=== PATIENT | female | born 1995 ===

== ENCOUNTER 2022-07-09 01:00 | Emergency (ER) | payer SELFPAY ==
[2022-07-09 01:04] VITALS: BP 126/82; PULSE 65; RESP 16; TEMP 36.7; O2SAT 98; BMI 37.8
--- NOTE | 2022-07-09 01:12 | USR_ITS ---
PROCEDURE INFORMATION: Exam: US Abdomen, Limited; Right Upper Quadrant Exam date and time: 07/09/2022 1:22 AM Age: 26 years old Clinical indication: Abdominal pain; Acute; Additional info: Ruq pain TECHNIQUE: Imaging protocol: Real time ultrasound of the abdomen with image documentation. Limited exam focused on the right upper quadrant. COMPARISON: No relevant prior studies available. FINDINGS: Liver: The liver is normal in size, measuring 17 a in cm in length. It shows a somewhat heterogeneous, hyperechoic echotexture as seen in hepatic steatosis.. Gallbladder: There are no shadowing gallstones. There is sludge in the gallbladder lumen. The gallbladder wall thickness is three mm. There is no pericholecystic fluid. The aws software development engineer reports a negative Stevens's sign. Biliary ducts: The common bile duct measures 2 mm in diameter, normal. Pancreas: The pancreas appears normal in size and echotexture. Right kidney: The right kidney measures 11.8 x 4.3 x 6.6 cm, normal. Cortical thickness is 1.1 cm. Spleen: There is normal cortical echogenicity. US/US gall bladder [id number] IMPRESSION: 1. Sludge in the gallbladder. No evidence of cholelithiasis or acute cholecystitis. 2. Hepatic steatosis with the liver near the upper limits of normal in size. 3. Normal common bile duct.
--- NOTE | 2022-07-09 01:13 | ED_ITS ---
HPI - Abdominal Pain General: Chief Complaint: Abdominal Pain Stated Complaint: ABD Pain\Back Pain Time Seen by Provider: 07/09/22 01:03 Source: patient Mode of arrival: ambulatory Limitations: no limitations History of Present Illness: 26-year-old females had epigastric pain over the last 10 hours. Patient states the pain is sharp in nature rates it a 6 out of 10 and radiated to her chest earlier denies any vomiting denies any diarrhea. Denies any worsening improving factors. Associated Symptoms: Denies chills, dysuria and fever(s) Review of Systems Const: Denies: fever(s), chills, body aches or change in appetite Eyes: Denies: blurry vision or eye discomfort ENMT: Denies: throat pain or dental pain Card: Denies: chest pain Resp: Denies: dyspnea GI: Reports: abdominal pain : Denies: dysuria Musc: Denies: neck pain or back pain Skin/Breast: Denies: rash Neuro: Denies: headache(s) Psych: Denies: depression Harry/Lymph: Denies: easy bruising All/Imm: Denies: urticaria PFSH ED PFSH: Medical History (Updated 07/09/22 @ 02:32 by Gee Queen MD) No pertinent past medical history Social History (Updated 07/09/22 @ 01:13 by Gee Queen MD) Substance/Drug Use: never Physical Exam Const: COMMON NORMALS: no acute distress, patient oriented x3 and healthy appearing HENMT: COMMON NORMALS: normocephalic and atraumatic HEAD & SCALP: normocephalic and atraumatic Eye: COMMON NORMALS: Equal, round and reactive pupils present and EOMs intact bilaterally PUPIL: Yes Equal, round and reactive pupils present Neck/C-Spine: COMMON NORMALS: full ROM and supple Chest: COMMONS NORMALS: normal inspection of the chest and normal palpation of entire chest wall Resp: COMMON NORMALS: normal respiratory effort, No retractions, No use of accessory muscles and clear to auscultation bilaterally AUSCULTATION: clear to auscultation bilaterally Cardio: COMMON NORMALS: regular rate, regular rhythm and No murmurs present (Cardio) RATE: regular rate RHYTHM: regular rhythm GI: COMMON NORMALS: Normal to inspection, nondistended, normoactive bowel sounds present, Soft to palpation, non-tender and no masses PALPATION: Yes Soft to palpation Extremity: COMMON NORMALS: normal to inspection and full ROM Neuro: COMMON NORMALS: patient oriented x3, moves all extremities and no focal motor deficits Psych: COMMON NORMALS: mental status grossly normal, Normal thought process present and cooperative THOUGHT PROCESS: Normal thought process present Skin: COMMON NORMALS: no rashes or lesions noted and no wounds GENERAL SKIN EXAM: no rashes or lesions noted Course Vital Signs: Vital signs: Vital Signs Temperature 98.0 F 07/09/22 01:04 Pulse Rate 65 07/09/22 01:44 Respiratory Rate 16 07/09/22 01:44 Blood Pressure 122/83 07/09/22 01:44 Pulse Oximetry 98 07/09/22 01:44 Oxygen Delivery Me thod 07/09/22 01:44 MDM - Abdominal Pain Medical Decision Making Patient presents abdominal pain is likely gastritis her GI cocktail completely relieved her pain her blood work here is normal exam is benign we will place her on Protonix care follow-up with surgery she is return if worsening. Lab Data 07/09/22 01:18 07/09/22 01:18 Labs/Radiology: Laboratory Results WBC 10.7 10^3/uL (4.0-10.0) H 07/09/22 01:18 RBC 4.50 10^6/uL (4.1-5.3) 07/09/22 01:18 Hgb 12.5 g/dL (11.5-15.3) 07/09/22 01:18 Hct 39.3 % (37.0-47.0) 07/09/22 01:18 MCV 87.3 fl (81-99) 07/09/22 01:18 MCH 27.8 pg (28.0-34.0) L 07/09/22 01:18 MCHC 31.8 g/dL (30.0-36.0) 07/09/22 01:18 RDW 12.8 % (12.1-15.1) 07/09/22 01:18 Plt Count 337 10^3/cmm (130-400) 07/09/22 01:18 MPV 9.6 fL (7.4-10.4) 07/09/22 01:18 Neut % (Auto) 78.9 % 07/09/22 01:18 Lymph % (Auto) 16.4 % 07/09/22 01:18 Harnett % (Auto) 4.0 % 07/09/22 01:18 Eos % (Auto) 0.2 % 07/09/22 01:18 Baso % (Auto) 0.3 % 07/09/22 01:18 Neut # (Auto) 8.44 10^3/uL (1.8-7.7) H 07/09/22 01:18 Lymph # (Auto) 1.8 10^3/uL (0.8-4.8) 07/09/22 01:18 Harnett # (Auto) 0.4 10^3/uL (0.2-0.9) 07/09/22 01:18 Eos # (Auto) 0.0 10^3/uL (0.0-0.8) 07/09/22 01:18 Baso # (Auto) 0.0 10^3/uL (0.0-0.1) 07/09/22 01:18 Nucleated RBC % (auto) 0 % 07/09/22 01:18 Nucleated RBCs # 0.0 /100WBC 07/09/22 01:18 Sodium 136 mmol/L (136-145) 07/09/22 01:18 Potassium 4.3 mmol/L (3.5-5.1) 07/09/22 01:18 Chloride 99 mmol/L (98-107) 07/09/22 01:18 Carbon Dioxide 26 mmol/L (22-29) 07/09/22 01:18 Anion Gap 15.3 (5-19) 07/09/22 01:18 BUN 12 mg/dL (6-20) 07/09/22 01:18 Creatinine 0.5 mg/dL (0.5-0.9) 07/09/22 01:18 Calcium 9.7 mg/dL (8.5-10.5) 07/09/22 01:18 Total Bilirubin 0.3 mg/dL (0.15-1.2) 07/09/22 01:18 AST 20 U/L (0-32) 07/09/22 01:18 Total Protein 7.9 g/dL (6.6-8.7) 07/09/22 01:18 Albumin 4.2 g/dL (3.5-5.2) 07/09/22 01:18 Globulin 3.7 g/dL (1.3-4.6) 07/09/22 01:18 Lipase 26 U/L (13-60) 07/09/22 01:18 HCG, Qual Negative (Negative) 07/09/22 01:18 Discharge Plan Discharge Patient Disposition: Home Clinical Impression: Abdominal pain Prescriptions: New pantoprazole [Protonix] 40 mg tablet,delayed release (DR/EC) 40 mg PO DAILY Qty: 60 0RF Discharge Orders: Discharge ED (Routine); Ordered 07/09/22 Ordered By: Gee Queen Referrals: Navneet Taveras DO [Physician] - 1-3 days Discharge Diet: Advance as tolerated Discharge Activity: Resume usual activity Patient Instructions: Gastritis (ED), Abdominal Pain (ED) Coding Level of Care Code ED Quality Assurance Supervisor Trim for Clara Stephens
--- NOTE | 2022-07-09 01:15 | XRR_ITS ---
PROCEDURE INFORMATION: Exam: XR Chest Exam date and time: 07/09/2022 1:39 AM Age: 26 years old Clinical indication: Pain; Chest pressure; Additional info: Cp TECHNIQUE: Imaging protocol: Radiologic exam of the chest. Views: 1 view. COMPARISON: No relevant prior studies available. FINDINGS: Lungs: There is no evidence of focal pulmonary consolidation. Pleural spaces: No pleural effusion or pneumothorax. Heart/Mediastinum: The heart and mediastinum are normal in size. Bones/joints: Unremarkable. XR/XR chest 1V portable [id number] IMPRESSION: No acute findings.
[2022-07-09 01:30] LABS: Basophils % 0.3 %; Eosinophils % 0.2 %; Hematocrit 39.3 % (37.0-47.0); Hemoglobin 12.5 g/dL (11.5-15.3); Lymphocytes # 1.8 10^3/uL (0.8-4.8); Lymphocytes % 16.4 %; Mean Corpuscular HGB Conc 31.8 g/dL (30.0-36.0); Mean Corpuscular Hemoglobin 27.8 pg (28.0-34.0); Mean Corpuscular Volume 87.3 fl (81-99); Mean Platelet Volume 9.6 fL (7.4-10.4); Monocytes # 0.4 10^3/uL (0.2-0.9); Neutrophils # 8.44 10^3/uL (1.8-7.7); Neutrophils % 78.9 %; Nucleated Red Blood Cells % 0 %; Platelet Count 337 10^3/cmm (130-400); Red Cell Distribution Width 12.8 % (12.1-15.1); White Blood Count 10.7 10^3/uL (4.0-10.0)
[2022-07-09] MEDS: lidocaine 2% viscous 15 ML, aluminum-mag hydrox-simethicon 30 ML, sucralfate oral liq 1 GM PO (01:32)
[2022-07-09] MEDS: sodium chloride 0.9% 1,000 ML 999 ML IV (01:35)
[2022-07-09 01:44] VITALS: BP 122/83; PULSE 65; RESP 16; O2SAT 98
[2022-07-09 02:15] LABS: Alanine Aminotransferase 34 U/L (0-33); Albumin Level 4.2 g/dL (3.5-5.2); Alkaline Phosphatase 120 U/L (35-105); Anion Gap 15.3 (5-19); Aspartate Amino Transferase 20 U/L (0-32); Blood Urea Nitrogen 12 mg/dL (6-20); Calcium 9.7 mg/dL (8.5-10.5); Carbon Dioxide 26 mmol/L (22-29); Chloride 99 mmol/L (98-107); Globulin 3.7 g/dL (1.3-4.6); Glomerular Filtration Rate 146.9 mL/min (90-130); Glucose 138 mg/dL (65-115); Lipase 26 U/L (13-60); Osmolality Calculated 284 mOsm/kg (285-295); Potassium 4.3 mmol/L (3.5-5.1); Sodium 136 mmol/L (136-145); Total Bilirubin 0.3 mg/dL (0.15-1.2); Total Protein 7.9 g/dL (6.6-8.7)
[2022-07-09 02:21] LABS: HCG, Serum Qual Negative (Negative)
[2022-07-09 02:51] VITALS: BP 122/67; PULSE 74; RESP 16; O2SAT 98
[2022-07-09 02:52] VITALS: BP 122/67; PULSE 74; RESP 16; O2SAT 98
--- NOTE | 2022-07-09 10:57 | DCPLANNER ---
Addendum entered by Cari Fragoso 08/01/22 08:17: Patient had a follow up appointment scheduled with general surgery - patient did attend appointment Addendum entered by Cari Fragoso 07/11/22 15:17: Patient has a follow up appointment scheduled for Sunday, July 31, 2022 at 11:[address] Taveras at general surgery. Clinic will call patient with appointment information. Original Note: administrative manager had message to schedule a follow up appointment for patient with general surgery. administrative manager sent patients information to the front office staff at general surgery. Patients information will be printed and reviewed. Clinic will call patient with appointment information.
== END 2022-07-09 02:50 | disposition home or self-care (01) ==
PROVIDERS: Emergency Provider Emergency Medicine
DX: R10.13 Epigastric pain (principal)
CPT/HCPCS: 71045; 76705; 80053; 83690; 84703; 85025; 96360; 99284; J7030

== ENCOUNTER 2022-11-05 07:39 | Day surgery (SDC) | payer SELFPAY ==
[2022-11-02 11:49] VITALS: BMI 37.2
[2022-11-05] VITALS (11 sets, daily range): BP systolic 107–121; BP diastolic 68–79; PULSE 51–66; RESP 12–16; TEMP 36.2; O2SAT 97–100
[2022-11-05] MEDS: scopolamine 1.5 Patch 1 PATCH TRANSDERMA (08:23)
[2022-11-05] MEDS: diphenhydrAMINE 50 mg/mL SDV 1mL 12.5 MG IVP (08:24)
[2022-11-05] MEDS: ondansetron 2 mg/ML SDV 2 mL 4 MG IVP (08:27)
--- NOTE | 2022-11-05 08:28 | P.HP_ITS ---
Providers/Chief Complaint Chief Complaint: R10.9 History of Present Illness Marzena Rucker is a 27 year old female here for laparoscopic cholecystectomy Medications/Allergies Home Medications Medication Instructions Recorded Confirmed Last Taken Type No Known Home Medications 11/02/22 11/02/22 Unknown History Allergies Allergy/AdvReac Type Severity Reaction Status Date / Time No Known Allergies Allergy Verified 11/02/22 11:44 PFSH Acute PFSH: Medical History Family history of breast cyst No pertinent past medical history Surgical History History of Social History Substance/Drug Use: never Vitals/I&O/Wt Last Vital Signs O2 Del Method Room Air 11/05/22 07:59 A&P Assessment and plan (1) Symptomatic cholelithiasis: Plan Laparoscopic cholecystectomy Attestations Medical Necessity Statement*: Home Coding Level of Care Code Acute Code for [facility] Raginid Diagnoses Symptomatic cholelithiasis K80.20
--- NOTE | 2022-11-05 08:30 | ANES.PREANE2 ---
Pre-Anesthetic Assessment Height/Weight: Height 1.63 m Weight 98.43 kg O2 Del Method Room Air 11/05/22 07:59 Operation Date: 11/05/22 10:10 Proposed Procedures p 43942 lap yusef R10.9(Not Applicable) - Navneet Taveras DO Familial anesthetic complications: none Was Beta Fidel taken within 24 hours: N/A Was Clonidine taken within 24 hours: N/A Last intake: Intake Last Liquid Date 11/04/22 Last Liquid Time 20:00 Last Solid Date 11/04/22 Last Solid Time 20:00 Social No tobacco Exam alert, oriented x 3, clear to auscultation bilaterally and regular rate & rhythm Airway Submandibular: within normal limits Cervical ROM: within normal limits Mallampati: Class II Dentition: full Metabolic Morbid Obesity Anesthetic Plan ASA status: 2 Anesthesia: General Medications/Allergies Home Medications Medication Instructions Recorded Confirmed Last Taken Type No Known Home Medications 11/02/22 11/02/22 Unknown History Allergies Allergy/AdvReac Type Severity Reaction Status Date / Time No Known Allergies Allergy Verified 11/02/22 11:44 [facility] Anesthesia Medical History Family history of breast cyst No pertinent past medical history Surgical History History of Social History Substance/Drug Use: never Data Anesthesia Cardiac Studies: No Data to Display
[2022-11-05] MEDS: sodium chloride 0.9% 1,000 ML 30 ML IV (08:40)
[2022-11-05 08:44] LABS: OR HCG Qualitative Urine Negative (Negative)
[2022-11-05] MEDS: ceFAZolin 2,000 MG in sodium chloride 0.9% (plus) 50 ML 100 MG IV (09:00)
[2022-11-05] MEDS: lidocaine-epi 2% 20 mL INJ INJECTION (09:11)
--- NOTE | 2022-11-05 09:29 | P.OP_ITS ---
Operative Report Date of procedure: November 05, 2022 Pre-op diagnosis: Symptomatic cholelithiasis Post-op diagnosis: same Procedure done: Laparoscopic cholecystectomy Specimens removed/disposition: Gallbladder Surgeon: Dr. Navneet Taveras DO Anesthesia: General Estimated blood loss (mL): 5 Complications: None apparent Brief History: This is a very pleasant 27-year-old female with symptomatic cholelithiasis. Laparoscopic cholecystectomy is indicated. The risk and benefits were explained and documented. Procedure: Patient was wheeled into the operative room and placed on the OR table in a supine position. Abdomen was inspected prepped and draped in usual sterile fashion. Time-out was performed and all present were in agreement. A 15 blade scalp was used to make a stab incision in the left upper quadrant and intra- abdominal insufflation was achieved using a Veress needle. After localizing the tissue incisions were made and a 5 millimeter trocar was placed into the umbilicus as well as 2 in the right upper quadrant. A 12 millimeter trocar was placed in the epigastrium. Gallbladder was grasped and elevated. The triangle of Calot was carefully dissected using blunt dissection and electrocautery until the triangle of Calot clearly identified. The cystic duct was clipped proximally and double clipped distally. The duct was then ligated proximally. The cystic artery was doubly clipped and ligated. The gallbladder was then removed from the liver bed using electrocautery. The gallbladder was removed from the abdomen using an Endo-Catch bag through the epigastric incision. The liver bed was inspected and no bleeding was seen. The abdomen was irrigated and suctioned. All ports removed. Skin was washed and dried. Incisions were closed with 3-0 and 4-O Vicryl in a subcuticular interrupted fashion. Skin glue was applied. Patient tolerated the procedure well.
[2022-11-05] MEDS: fentaNYL 50 mcg/mL INJ 2mL IVP (09:55)
[2022-11-05] MEDS: HYDROcodone-acetaminophen 5-325 mg Tablet 1 TAB PO (10:34)
--- NOTE | 2022-11-05 14:34 | ANE.PACU2 ---
Inpatient post-anesthesia follow up: Airway intact: Yes Vital signs: Temperature 97.2 F Pulse Rate 58 Respiratory Rate 16 Blood Pressure 118/76 Pulse Oximetry 100 Oxygen Delivery Me thod Room Air Oxygen Flow Rate 6 Fraction of Inspir ed Oxygen Hydration adequate: Yes Nausea and vomiting: No Pain level: 3 Mental status: Baseline
== END 2022-11-05 10:53 | disposition home or self-care (01) ==
PROVIDERS: Anesthesiology; Visit Provider Surgery
PROC: 0FT44ZZ Resection of Gallbladder, Percutaneous Endoscopic Approach (ICD-10-PCS; CPT 47562; principal; 2022-11-05 10:10)
DX: K80.10 Calculus of gallbladder with chronic cholecystitis without obstruction (principal); E66.01 Morbid (severe) obesity due to excess calories; Z68.37 Body mass index [BMI] 37.0-37.9, adult
CPT/HCPCS: 47562; 81025; 84703; 88304; J0690; J1100; J1170; J1200; J1885; J2250; J2405; J2704; J2710; J3010; J3490; J7030

== ENCOUNTER 2022-12-17 12:35 | Outpatient (CLI) | payer SELFPAY ==
--- NOTE | 2022-12-17 13:27 | US_ITS ---
WS: [id number] ULTRASOUND BREAST RIGHT TECHNIQUE: Ultrasound right breast focused area of concern. CLINICAL INFORMATION: MASTODYNIA/PAIN AND NODULE COMPARISON: Ultrasound 2013 FINDINGS: Ultrasound RIGHT breast upper outer quadrant area of pain. Normal underlying parenchymal tissue. No s uspicious cystic or solid lesions. No suspicious lesions to target for biopsy. Recommend annual scree lana mammography age 40. US/US breast RT limited* [id number] IMPRESSION: BI-RADS 2 benign Recommend annual screening mammography age 40.
== END 2022-12-17 12:36 | disposition home or self-care (01) ==
PROVIDERS: Visit Provider Obstetrics & Gynecology
DX: N64.4 Mastodynia (principal)
CPT/HCPCS: 76642

== ENCOUNTER → 2024-09-13 15:35 | Outpatient (BNVA) | payer SELFPAY | PROVIDERS: Visit Provider Emergency Medicine | DX: M79.671 Pain in right foot (principal) | CPT/HCPCS: 73630 ==

== ENCOUNTER → 2024-10-26 11:29 | Outpatient (BNVA) | payer SELFPAY | PROVIDERS: Visit Provider Nurse Practitioner Women's Health | DX: R30.0 Dysuria (principal); R10.2 Pelvic and perineal pain | CPT/HCPCS: 81000 ==

== ENCOUNTER → 2024-11-03 09:30 | Outpatient (BNVA) | payer SELFPAY | DX: R05.3 Chronic cough (principal); M25.561 Pain in right knee | CPT/HCPCS: 71046; 73562 ==

== ENCOUNTER → 2024-11-17 10:10 | Outpatient (BNVA) | payer SELFPAY | PROVIDERS: Visit Provider Nurse Practitioner Women's Health | DX: Z01.419 Encounter for gynecological examination (general) (routine) without abnormal findings (principal) | CPT/HCPCS: 81000; 87086; 87624 ==

== ENCOUNTER 2024-12-09 07:14 | Outpatient (CLI) | payer SELFPAY ==
--- NOTE | 2024-12-09 07:40 | XR_ITS ---
WS: [id number] RIGHT SHOULDER: 3 VIEW(S) TECHNIQUE: Internal and external rotation with Y view. HISTORY: right shoulder pain COMPARISON: None available. No fracture or dislocation or soft tissue abnormality. Glenohumeral and AC joints are unremarkable. XR/XR shoulder RT min 2V* [id number] IMPRESSION: Normal RIGHT shoulder.
== END 2024-12-09 07:15 | disposition home or self-care (01) ==
LOC: RAD 07:15
DX: M25.511 Pain in right shoulder (principal)
CPT/HCPCS: 73030